=== PATIENT | female | born 1970 | race Caucasian/White ===

== ENCOUNTER 2017-04-25 11:40 | Inpatient (IN) | payer BC ==
[~2017-04-25] VITALS: Ht 165.1 cm; Wt 70.4 kg
--- NOTE | ~2017-04-25 | CON ---
[place], [place] REPORT OF CONSULTATION NAME: HERB DYSON [facility] #: [id number] UNIT #: [id number] ROOM: 409 DOCTOR: ROSARIO SAMUELS MD BIRTHDATE: [birth year] DOS: REASON FOR CONSULTATION: The patient was seen in the intensive care unit today for evaluation of an abnormal electrocardiogram. HISTORY OF PRESENT ILLNESS: The patient is a 46-year-old woman with no previously documented history of heart disease. She states that she was told that she had an irregular heartbeat a year or more ago. She was seen by a doctor in [place], who told her that her heart was fine. She does not believe that he did any extensive testing and specifically denies wearing a monitor or having an echocardiogram or stress test done. The patient does use cocaine on a daily basis as well as heroin. On the day of admission, 04/25/2017, she did have a line of cocaine and was injected with heroin. She then lost consciousness. She apparently did fall striking her head. It is not clear whether bystanders might have done a CPR, but she does have a bruise on her sternum. Her initial electrocardiogram did show ST elevations in multiple leads. A subsequent EKG has improved. The patient denies any pleuritic chest pain and does not have any elevation in troponin. We were asked to help determine the cause and significance of her EKG changes. Currently, the patient feels well. She does have a headache from an injury to her head that she apparently sustained while unconscious. There are reports that she fell. She denies any chest pain. She does have some dyspnea. She denies any nausea or vomiting. She denies any peripheral edema or history of DVT. PAST MEDICAL HISTORY: Includes: 1. Tobacco abuse. 2. Cocaine use. 3. Heroin use. 4. Marijuana use. 5. Occasional alcohol use. 6. No previous medical illnesses or surgeries. The patient states that she takes no prescribed medicines and has no known drug allergies. FAMILY HISTORY: Her father in his 60s from a stroke. Her mother in her 50s from pancreatic cancer. REVIEW OF SYSTEMS: The patient denies diplopia or loss of vision. She denies any focal weakness. She does have a headache. She denies nausea or vomiting. She denies fevers, chills or sweats. She states that she does have some dyspnea. She denies orthopnea or PND. She denies nausea or vomiting. She denies change in bowel or bladder habits. She denies blood in urine or stools. She denies any hot or swollen joints. The remainder of the review of systems is negative except as noted above. SOCIAL HISTORY: The patient does use multiple drugs as noted above. She smokes 1 pack a day and has done so since age 15. She does not consume much alcohol. [place], [place] REPORT OF CONSULTATION NAME: HERB DYSON UNIT #: [id number] ROOM: [facility] DOCTOR: ROSARIO SAMUELS MD BIRTHDATE: [birth year] PHYSICAL EXAMINATION: GENERAL: The patient is a well-nourished white female who is awake, alert and oriented. VITAL SIGNS: Pulse is 70 and regular, blood pressure is 103/76, the patient is afebrile. She weighs 70.4 kg and has a body mass index of 25.8. HEENT: Normocephalic, atraumatic. Extraocular muscles are intact. Sclerae are clear. Pupils are equal, round and react to light. The oral mucosa is moist. Tongue is midline. NECK: Supple. She has no jugular distention. The carotids are full. I heard no bruits. She had no neck or supraclavicular masses. Respirations are unlabored. She does have expiratory prolongation and scattered wheezes bilaterally. There were no rales. There was no presacral edema or chest wall tenderness. CARDIOVASCULAR: Her heart has a regular rhythm without murmurs, rubs or gallops. The PMI is not displaced. There is no precordial heave, lift or thrill. ABDOMEN: Soft and normoactive without masses, organomegaly or bruits. EXTREMITIES: Showed no edema. Peripheral pulses were easily palpated in the feet bilaterally. There were no palpable cords or Homans sign. Chest x-ray showed no acute cardiopulmonary problems. LABORATORY DATA: Show normal troponin levels. Hemoglobin is 12.2, white count 13,800, platelet count 141,000. Urine screen is positive for opiates, cocaine, metabolites and cannabinoids. Sodium is 142, potassium 3.9, BUN 6, creatinine 0.82. I did review her electrocardiograms and they do show ST elevations in multiple leads, which are mild. The repeat EKG had improved. IMPRESSION: 1. Abnormal electrocardiogram which has improved. The patient's examination does not indicate a rub. She does not have a paradoxic pulse and her chest x-ray does not show significant cardiomegaly. I think it is very unlikely that she has pericarditis. Her EKG changes may be due to early repolarization or possibly due to vasospasm from cocaine. 2. History of multiple drug abuse. 3. History of long-term and ongoing cigarette abuse. PLAN: We will proceed with an echocardiogram. If that looks normal, then no other cardiac workup is planned at this time. We thank the hospitalist service for asking our advice regarding her care. [place], [place] REPORT OF CONSULTATION NAME: KARISHERB Gary UNIT #: [id number] ROOM: [facility] DOCTOR: ROSARIO SAMUELS MD BIRTHDATE: [birth year] ROSARIO SAMUELS MD CM:CONSTR:REPORT OF CONSULTATION 1117 04/26/17 [id number] interface
--- NOTE | ~2017-04-25 | PR ---
[place], [place] PROGRESS NOTE NAME: HERB DYSON [facility] #: [id number] UNIT #: [id number] ROOM: 409 DOCTOR: ROSARIO SAMUELS MD BIRTHDATE: [birth year] DOS: 04/27/2017 CARDIOLOGY PROGRESS NOTE SUBJECTIVE: The patient was seen at her bedside today for followup of her abnormal electrocardiogram. She is feeling better. Her chest is sore, but she denies pleuritic chest pain. She has not had fevers or chills. She is drowsy, but thinks it is from the Subutex. PHYSICAL EXAMINATION: VITAL SIGNS: Today, her pulse is 64 and regular, blood pressure is 147/88, she is afebrile. She weighs 70.4 kg with a body mass index of 25.8. HEENT: Normocephalic, atraumatic. Extraocular muscles are intact. Sclerae are clear. Pupils are equal, round and reactive to light. The oral mucosa is moist. Tongue is midline. NECK: Supple. She has no jugular distention. Carotids are full. LUNGS: Respirations are unlabored. HEART: Has a regular rhythm without murmurs, rubs or gallops. PMI is not displaced. There is no precordial heave, lift or thrill. ABDOMEN: Soft and normally active. EXTREMITIES: Showed no edema. IMAGING: I reviewed her echocardiogram yesterday. It shows a normal pericardium without any evidence for pericarditis, left ventricular size, wall thickness, regional wall motion and systolic function are all normal. She did not have any valve abnormalities. She does have an atrial septal aneurysm. Saline contrast injection did show that there is evidence for a patent foramen ovale with right to left shunting. The atrial dimensions were normal and there was no evidence for right ventricular overload to suggest that this was a hemodynamically significant finding. IMPRESSIONS: 1. Abnormal electrocardiogram, which has improved. The patient's examination and echocardiogram did not show any evidence for pericarditis or hemodynamically significant pericardial effusion. EKG changes may be due to early repolarization or possibly due to vasospasm from cocaine abuse. 2. History of multiple drug abuse. 3. Long-term and ongoing cigarette abuse. 4. Atrial septal aneurysm with presence of a patent foramen ovale and right to left shunting. PLAN: The atrial septal aneurysm and patent foramen ovale are incidental findings. Utmost, I would treat her with antiplatelet therapy, but unless she has a stroke or transient ischemic attack, no other management strategies are appropriate. The most significant effect of an atrial septal aneurysm is, it can be associated with a PFO, but it does not worsen the patient's overall prognosis, cause chest pain, etc. [place], [place] PROGRESS NOTE NAME: HERB DYSON UNIT #: [id number] ROOM: 409 DOCTOR: ABRIL HUGGINS,ROSARIO BIRTHDATE: [birth year] I think that we can remove the patient's heart monitor. We will follow her as needed during her hospitalization, but for now, we will sign off. I thank the hospitalist group for asking our advice regarding her care. ROSARIO SAMUELS MD CM:PNTRANS [id number] ROSARIO SAMUELS MD 04/28/17 0407 interface
[~2017-04-25 11:40] MED LIST: CIPRO250 MG PO; MOTRIN800 MG PO
[2017-04-25 11:54] VITALS: BP 128/88
[2017-04-25 12:31] LABS: BASO % 0.3 % (0.0-1.0); EOS # 0.1 10*3/uL (0.0-0.4); EOS % 0.9 % (1.0-4.0); HEMATOCRIT 39.2 % (37.0-47.0); HEMOGLOBIN 13.3 g/dl (12.0-16.0); IG # 0.1 10*3/uL (0.0-0.1); LYMPH % 16.8 % (27.0-41.0); MEAN CELL VOLUME 96.3 fl (81.0-99.0); MEAN CORPUSCULAR HGB 32.7 pg (27.0-31.0); MEAN CORPUSCULAR HGB CONC 33.9 g/dl (33.0-37.0); MEAN PLATELET VOLUME 11.7 fl (9.6-12.3); MONO # 0.4 10*3/uL (0.1-1.0); MONO % 3.8 % (3.0-9.0); NEUT # 9.1 10*3/uL (2.3-7.9); NEUT % 77.7 % (47.0-73.0); PLATELET COUNT AUTOMATED 153 10*3/uL (130-400); RED BLOOD COUNT 4.07 10*6/uL (4.10-5.10); RED CELL DISTRI WIDTH 12.5 % (0-14.5); WHITE BLOOD COUNT 11.7 10*3/uL (4.8-10.8)
[2017-04-25 12:40] LABS: INTERNATIONAL NORM RATIO 1.1 (2.0-3.5); PROTHROMBIN TIME 11.5 SECONDS (9.0-12.4)
[2017-04-25 12:49] LABS: ALBUMIN 3.3 gm/dl (3.1-4.5); ALKALINE PHOSPHATASE 55 U/L (45-117); BILIRUBIN, TOTAL 0.4 mg/dl (0.2-1.0); BUN 9 mg/dl (7-24); CARBON DIOXIDE 26 mmol/L (21-32); CHLORIDE 103 mmol/L (98-107); CPK 91 U/L (26-192); EST GLOM FILT AFRICAN AMERICAN > 60 ml/min; GLUCOSE 156 mg/dL (65-99); MAGNESIUM 1.8 mg/dL (1.5-2.1); POTASSIUM 3.4 mmol/L (3.5-5.1); SGOT/AST 15 IU/L (3-35); SGPT/ALT 15 U/L (12-78); SODIUM 138 mmol/L (136-145); TOTAL PROTEIN 6.1 gm/dL (6.4-8.2)
[2017-04-25 12:51] LABS: C-REACTIVE PROTEIN < 0.29 MG/DL (0-0.3); TROPONIN I < 0.015 ng/ml (<0.045)
[2017-04-25 13:04] VITALS: BP 98/50
[2017-04-25 14:15] LABS: BILIRUBIN NEGATIVE (NEGATIVE); BLOOD NEGATIVE (NEGATIVE); CLARITY CLOUDY (CLEAR); COLOR YELLOW (YELLOW); GLUCOSE TRACE (NEGATIVE); KETONE NEGATIVE (NEGATIVE); LEUKO ESTERASE NEGATIVE (NEGATIVE); NITRITE NEGATIVE (NEGATIVE); PH 5.5 (5.0-9.0); PROTEIN 1+ (NEGATIVE); SPECIFIC GRAVITY >= 1.030 (1.005-1.030)
[2017-04-25 14:28] LABS: LA>2 REFLEX 2 HR DRAW NOW
[2017-04-25 14:33] LABS: BACTERIA 1+; EPITHELIAL CELLS 16-20; URINE REFLEX COMMENT NO (NO)
[2017-04-25 14:39] LABS: URINE AMPHETAMINES < 1000 (1000ng/ml); URINE BARBITURATES < 200 (200ng/ml); URINE COCAINE > 300 (300ng/ml)
[2017-04-25 15:41] VITALS: BP 108/48
[2017-04-25 17:16] VITALS: BP 150/94
[2017-04-25 18:07] VITALS: BP 98/55
[2017-04-25 20:00] VITALS: BP 96/58
[2017-04-26] VITALS: BP 103/76
[2017-04-26 00:56] LABS: CKMB 2.8 ng/ml (0.5-3.6)
[2017-04-26 00:57] LABS: CPK 131 U/L (26-192); TROPONIN I < 0.015 ng/ml (<0.045)
[2017-04-26 01:24] LABS: BILIRUBIN NEGATIVE (NEGATIVE); BLOOD NEGATIVE (NEGATIVE); COLOR YELLOW (YELLOW); GLUCOSE NEGATIVE (NEGATIVE); KETONE NEGATIVE (NEGATIVE); LEUKO ESTERASE 1+ (NEGATIVE); NITRITE NEGATIVE (NEGATIVE); PROTEIN NEGATIVE (NEGATIVE); SPECIFIC GRAVITY 1.015 (1.005-1.030); UROBILINOGEN 0.2 E.U./dl (0.2-1.0)
[2017-04-26 01:33] LABS: CLARITY SL CLOUDY (CLEAR); EPITHELIAL CELLS 40-45
[2017-04-26 01:34] LABS: BACTERIA TRACE; URINE REFLEX COMMENT YES (NO)
[2017-04-26 04:00] VITALS: BP 103/76
[2017-04-26 06:21] LABS: BASO % 0.3 % (0.0-1.0); EOS # 0.1 10*3/uL (0.0-0.4); EOS % 0.6 % (1.0-4.0); HEMATOCRIT 37.4 % (37.0-47.0); HEMOGLOBIN 12.2 g/dl (12.0-16.0); IG # 0.1 10*3/uL (0.0-0.1); LYMPH # 2.9 10*3/uL (1.3-4.4); LYMPH % 20.8 % (27.0-41.0); MEAN CELL VOLUME 97.1 fl (81.0-99.0); MEAN CORPUSCULAR HGB 31.7 pg (27.0-31.0); MEAN CORPUSCULAR HGB CONC 32.6 g/dl (33.0-37.0); MEAN PLATELET VOLUME 12.8 fl (9.6-12.3); MONO # 0.8 10*3/uL (0.1-1.0); MONO % 5.5 % (3.0-9.0); NEUT % 72.4 % (47.0-73.0); PLATELET COUNT AUTOMATED 141 10*3/uL (130-400); RED BLOOD COUNT 3.85 10*6/uL (4.10-5.10); RED CELL DISTRI WIDTH 12.8 % (0-14.5); WHITE BLOOD COUNT 13.8 10*3/uL (4.8-10.8)
[2017-04-26 06:35] LABS: BUN 6 mg/dl (7-24); CARBON DIOXIDE 24 mmol/L (21-32); CHLORIDE 109 mmol/L (98-107); CHOLESTEROL 107 mg/dL (<200); EST GLOM FILT AFRICAN AMERICAN > 60 ml/min; FREE T4 1.14 ng/dl (0.76-1.46); GLUCOSE 81 mg/dL (65-99); HDL CHOLESTEROL 66 mg/dl (40-60); LDL CHOLESTEROL 30 mg/dL (9-159); PHOSPHOROUS 2.5 mg/dL (2.5-4.9); POTASSIUM 3.9 mmol/L (3.5-5.1); SODIUM 142 mmol/L (136-145); TRIGLYCERIDES 57 mg/dl (<150); VLDL CHOLESTEROL 11 mg/dL (6-40)
[2017-04-26 06:36] LABS: CPK 117 U/L (26-192)
[2017-04-26 06:37] LABS: CKMB 2.4 ng/ml (0.5-3.6)
[2017-04-26 06:38] LABS: TROPONIN I < 0.015 ng/ml (<0.045)
[2017-04-26 06:42] LABS: THYROID STIM HORMONE (HS) 0.285 uIU/ml (0.358-4.75)
[2017-04-26 06:55] LABS: HEMOGLOBIN A1c 5.6 % (4.8-5.6)
[2017-04-26 08:15] VITALS: BP 98/60
[2017-04-26 12:00] VITALS: BP 89/54
[2017-04-26 12:23] LABS: CKMB 1.4 ng/ml (0.5-3.6); CPK 91 U/L (26-192)
[2017-04-26 12:25] LABS: TROPONIN I < 0.015 ng/ml (<0.045)
[2017-04-26 15:57] VITALS: BP 118/77
[2017-04-26 20:00] VITALS: BP 125/74
[2017-04-27] VITALS: BP 125/83
[2017-04-27 06:00] LABS: BASO # 0.1 10*3/uL (0.0-0.1); BASO % 0.6 % (0.0-1.0); EOS # 0.1 10*3/uL (0.0-0.4); EOS % 0.7 % (1.0-4.0); HEMATOCRIT 38.2 % (37.0-47.0); HEMOGLOBIN 12.5 g/dl (12.0-16.0); LYMPH # 1.8 10*3/uL (1.3-4.4); MEAN CELL VOLUME 97.4 fl (81.0-99.0); MEAN CORPUSCULAR HGB 31.9 pg (27.0-31.0); MEAN CORPUSCULAR HGB CONC 32.7 g/dl (33.0-37.0); MEAN PLATELET VOLUME 12.5 fl (9.6-12.3); MONO # 0.7 10*3/uL (0.1-1.0); MONO % 6.7 % (3.0-9.0); NEUT % 74.6 % (47.0-73.0); PLATELET COUNT AUTOMATED 134 10*3/uL (130-400); RED BLOOD COUNT 3.92 10*6/uL (4.10-5.10); RED CELL DISTRI WIDTH 12.8 % (0-14.5); WHITE BLOOD COUNT 10.7 10*3/uL (4.8-10.8)
[2017-04-27 06:03] LABS: ALBUMIN 2.9 gm/dl (3.1-4.5); ALKALINE PHOSPHATASE 52 U/L (45-117); BILIRUBIN, TOTAL 0.8 mg/dl (0.2-1.0); BUN 5 mg/dl (7-24); CARBON DIOXIDE 30 mmol/L (21-32); CHLORIDE 105 mmol/L (98-107); EST GLOM FILT AFRICAN AMERICAN > 60 ml/min; GLUCOSE 98 mg/dL (65-99); POTASSIUM 3.8 mmol/L (3.5-5.1); SGOT/AST 7 IU/L (3-35); SGPT/ALT 12 U/L (12-78); SODIUM 142 mmol/L (136-145); TOTAL PROTEIN 5.9 gm/dL (6.4-8.2)
[2017-04-27 07:56] VITALS: BP 117/72
[2017-04-27 11:50] VITALS: BP 147/88
[2017-04-27 15:59] VITALS: BP 124/80
[2017-04-27 20:00] VITALS: BP 102/79
[2017-04-28] VITALS: BP 110/64
[2017-04-28 08:00] VITALS: BP 108/56
[2017-04-28 12:00] VITALS: BP 128/75
[2017-04-28 16:00] VITALS: BP 113/71
[2017-04-28 20:00] VITALS: BP 118/68
[2017-04-29] VITALS: BP 121/74
[2017-04-29 06:03] LABS: BASO % 0.1 % (0.0-1.0); EOS % 0.2 % (1.0-4.0); HEMATOCRIT 38.7 % (37.0-47.0); LYMPH # 1.6 10*3/uL (1.3-4.4); LYMPH % 13.1 % (27.0-41.0); MEAN CELL VOLUME 94.9 fl (81.0-99.0); MEAN CORPUSCULAR HGB 31.9 pg (27.0-31.0); MEAN CORPUSCULAR HGB CONC 33.6 g/dl (33.0-37.0); MEAN PLATELET VOLUME 12.7 fl (9.6-12.3); MONO # 0.9 10*3/uL (0.1-1.0); MONO % 7.9 % (3.0-9.0); NEUT # 9.3 10*3/uL (2.3-7.9); NEUT % 78.4 % (47.0-73.0); PLATELET COUNT AUTOMATED 174 10*3/uL (130-400); RED BLOOD COUNT 4.08 10*6/uL (4.10-5.10); RED CELL DISTRI WIDTH 12.5 % (0-14.5); WHITE BLOOD COUNT 11.8 10*3/uL (4.8-10.8)
[2017-04-29 08:00] VITALS: BP 100/56
[2017-04-29] MEDS ORDERED: ATARAX,VISTARIL50 MG PO (11:11)
[2017-04-29] MEDS ORDERED: ROPINIROLE HYD0.5 MG PO (11:11)
[2017-04-29] MEDS ORDERED: PREDNISONE10 MG PO (11:11)
[2017-04-29] MEDS ORDERED: ONDANSETRON H2 MG/ML IV (11:11)
[2017-04-29] MEDS ORDERED: VIBRAMYCIN100 MG PO (11:11)
[2017-04-29] MEDS ORDERED: ASPIRIN CHEWABL81 MG PO (11:13)
== END 2017-04-29 14:19 | disposition home or self-care (01) | DRG 917 ==
LOC: ED → 4E 16:55 → EDHOLD 16:55 → ICCU 16:55 → 4E 04-26 15:52
PROVIDERS: Emergency Medicine; Internal Medicine; Student in an Organized Health Care Education/Training Program
DX: T40.1X1A Poisoning by heroin, accidental (unintentional), initial encounter (principal); J96.01 Acute respiratory failure with hypoxia; N17.0 Acute kidney failure with tubular necrosis; G93.41 Metabolic encephalopathy; E44.0 Moderate protein-calorie malnutrition; F11.23 Opioid dependence with withdrawal; Q21.1 Atrial septal defect; F14.10 Cocaine abuse, uncomplicated; S09.90XA Unspecified injury of head, initial encounter; E87.6 Hypokalemia; E55.9 Vitamin D deficiency, unspecified; J20.9 Acute bronchitis, unspecified; W18.30XA Fall on same level, unspecified, initial encounter; Z72.89 Other problems related to lifestyle; Z82.3 Family history of stroke; Z72.0 Tobacco use; Z80.8 Family history of malignant neoplasm of other organs or systems; Y92.89 Other specified places as the place of occurrence of the external cause; Z68.25 Body mass index [BMI] 25.0-25.9, adult; Z82.49 Family history of ischemic heart disease and other diseases of the circulatory system; Z83.3 Family history of diabetes mellitus; Y93.89 Activity, other specified; Y99.8 Other external cause status

== ENCOUNTER 2018-04-24 21:43 | Emergency (ER) | payer OTHER ==
[~2018-04-24] VITALS: Ht 162.5 cm; Wt 68.0 kg
[~2018-04-24 21:43] MED LIST changes: +ASPIRIN CHEWABL81 MG PO; +ATARAX,VISTARIL50 MG PO; +ONDANSETRON H2 MG/ML IV; +PREDNISONE10 MG PO; +ROPINIROLE HYD0.5 MG PO; +VIBRAMYCIN100 MG PO
[2018-04-24 22:15] LABS: BILIRUBIN NEGATIVE (NEGATIVE); BLOOD 2+ (NEGATIVE); CLARITY CLEAR (CLEAR); COLOR YELLOW (YELLOW); GLUCOSE NEGATIVE (NEGATIVE); KETONE NEGATIVE (NEGATIVE); LEUKO ESTERASE 3+ (NEGATIVE); NITRITE POSITIVE (NEGATIVE); UROBILINOGEN 0.2 E.U./dl (0.2-1.0)
[2018-04-24 22:27] LABS: BACTERIA 3+; WBC 21-30 wbc/hpf (0-5)
[2018-04-24 22:30] LABS: URINE AMPHETAMINES < 1000 (1000ng/ml); URINE BARBITURATES < 200 (200ng/ml); URINE BENZODIAZEPINES < 200 (200ng/ml); URINE CANNABINOIDS (THC) > 50 (50ng/ml); URINE COCAINE > 300 (300ng/ml); URINE METHADONE < 300 (300ng/ml); URINE OPIATES < 300 (300ng/ml); URINE PHENCYCLIDINE < 25 (25ng/ml)
[2018-04-24 23:03] LABS: BASO # 0.1 10*3/uL (0.0-0.1); BASO % 0.5 % (0.0-1.0); EOS % 0.3 % (1.0-4.0); HEMATOCRIT 41.5 % (37.0-47.0); LYMPH % 19.5 % (27.0-41.0); MEAN CELL VOLUME 95.4 fl (81.0-99.0); MEAN CORPUSCULAR HGB 32.2 pg (27.0-31.0); MEAN CORPUSCULAR HGB CONC 33.7 g/dl (33.0-37.0); MEAN PLATELET VOLUME 11.3 fl (9.6-12.3); MONO # 1.1 10*3/uL (0.1-1.0); MONO % 10.7 % (3.0-9.0); NEUT # 7.1 10*3/uL (2.3-7.9); NEUT % 68.7 % (47.0-73.0); PLATELET COUNT AUTOMATED 194 10*3/uL (130-400); RED BLOOD COUNT 4.35 10*6/uL (4.10-5.10); RED CELL DISTRI WIDTH 12.5 % (0-14.5); WHITE BLOOD COUNT 10.3 10*3/uL (4.8-10.8)
[2018-04-24 23:17] LABS: ALBUMIN 3.5 gm/dl (3.1-4.5); ALKALINE PHOSPHATASE 76 U/L (45-117); BUN 8 mg/dl (7-24); CHLORIDE 103 mmol/L (98-107); CREATININE 0.99 mg/dL (0.55-1.02); POTASSIUM 3.7 mmol/L (3.5-5.1); SGOT/AST 16 IU/L (3-35); SGPT/ALT 14 U/L (12-78); SODIUM 140 mmol/L (136-145); TOTAL PROTEIN 7.8 gm/dL (6.4-8.2)
[2018-04-25] MEDS ORDERED: SEPTDS PO (00:41)
[2018-04-25] MEDS ORDERED: VICODIN 5-3001 EACH PO (00:41)
== END 2018-04-25 01:03 | disposition home or self-care (01) ==
LOC: ED 21:43
PROVIDERS: Emergency Medicine
DX: N20.0 Calculus of kidney (principal); N39.0 Urinary tract infection, site not specified; R31.9 Hematuria, unspecified; F17.200 Nicotine dependence, unspecified, uncomplicated; M54.5 Low back pain; F11.10 Opioid abuse, uncomplicated; F14.10 Cocaine abuse, uncomplicated; F12.90 Cannabis use, unspecified, uncomplicated; Z79.82 Long term (current) use of aspirin; Z79.899 Other long term (current) drug therapy

== ENCOUNTER 2019-06-05 10:34 | Emergency (ER) | payer OTHER ==
[~2019-06-05] VITALS: Ht 162.5 cm; Wt 72.6 kg
[~2019-06-05 10:34] MED LIST changes: +SEPTDS PO; +VICODIN 5-3001 EACH PO
[2019-06-05] MEDS ORDERED: Motrin,Rufen800 MG PO (10:51)
[2019-06-05] MEDS ORDERED: CLINDAMYCIN HC300 MG PO (10:51)
== END 2019-06-05 11:00 | disposition home or self-care (01) ==
LOC: ED 10:34
DX: K04.7 Periapical abscess without sinus (principal); F17.200 Nicotine dependence, unspecified, uncomplicated; Z79.2 Long term (current) use of antibiotics; Z79.82 Long term (current) use of aspirin

== ENCOUNTER 2019-09-20 19:43 | Emergency (ER) | payer OTHER ==
[~2019-09-20] VITALS: Ht 162.5 cm; Wt 72.6 kg
[~2019-09-20 19:43] MED LIST changes: +CLINDAMYCIN HC300 MG PO; +Motrin,Rufen800 MG PO
[2019-09-20] MEDS ORDERED: PREDNISONE20 M1 PO (20:51)
[2019-09-20] MEDS ORDERED: ROBAXIN-750750 MG PO (20:51)
== END 2019-09-20 21:18 ==
LOC: ED 19:43
DX: M54.42 Lumbago with sciatica, left side (principal); F17.200 Nicotine dependence, unspecified, uncomplicated

== ENCOUNTER → 2019-10-04 | Outpatient (CLI) | payer OTHER ==
[~2019-10-04] MED LIST changes: +PREDNISONE20 M1 PO; +ROBAXIN-750750 MG PO
== END | disposition home or self-care (01) ==
LOC: RAD 09:09
DX: M25.561 Pain in right knee (principal)

== ENCOUNTER → 2020-05-07 | Outpatient (CLI) | payer OTHER | END | disposition home or self-care (01) | LOC: COVID19 00:11 | DX: Z01.818 Encounter for other preprocedural examination (principal); Z11.59 Encounter for screening for other viral diseases ==

== ENCOUNTER 2020-08-24 12:17 | Emergency (ER) | payer OTHER ==
[~2020-08-24] VITALS: Ht 162.5 cm; Wt 70.3 kg
[2020-08-24] MEDS ORDERED: IBU800 MG PO (13:53)
== END 2020-08-24 14:01 | disposition home or self-care (01) ==
LOC: ED 12:17
DX: M25.561 Pain in right knee (principal); F17.200 Nicotine dependence, unspecified, uncomplicated; Z79.899 Other long term (current) drug therapy

== ENCOUNTER → 2020-09-08 | Outpatient (CLI) | payer OTHER ==
[~2020-09-08] MED LIST changes: +IBU800 MG PO
[2020-09-08 13:12] LABS: BASO # 0.1 10*3/uL (0.0-0.1); BASO % 1.1 % (0.0-1.0); EOS # 0.1 10*3/uL (0.0-0.4); EOS % 1.8 % (1.0-4.0); HEMATOCRIT 43.1 % (37.0-47.0); LYMPH # 3.3 10*3/uL (1.3-4.4); LYMPH % 54.5 % (27.0-41.0); MEAN CELL VOLUME 91.7 fl (81.0-99.0); MEAN CORPUSCULAR HGB 30.4 pg (27.0-31.0); MEAN CORPUSCULAR HGB CONC 33.2 g/dl (33.0-37.0); MEAN PLATELET VOLUME 11.7 fl (9.6-12.3); MONO # 0.5 10*3/uL (0.1-1.0); MONO % 7.8 % (3.0-9.0); NEUT # 2.1 10*3/uL (2.3-7.9); NEUT % 34.8 % (47.0-73.0); PLATELET COUNT AUTOMATED 232 10*3/uL (130-400); RED CELL DISTRI WIDTH 13.8 % (0-14.5); WHITE BLOOD COUNT 6.1 10*3/uL (4.8-10.8)
[2020-09-08 13:36] LABS: ALBUMIN 4.1 gm/dl (3.1-4.5); BUN 18 mg/dl (7-24); CHLORIDE 106 mmol/L (98-107); HDL CHOLESTEROL 72 mg/dl (40-60); POTASSIUM 3.9 mmol/L (3.5-5.1); SODIUM 142 mmol/L (136-145)
[2020-09-08 13:44] LABS: ALKALINE PHOSPHATASE 80 U/L (45-117); BILIRUBIN, DIRECT 0.1 mg/dL (0.0-0.2); CHOLESTEROL 203 mg/dL (<200); LDL CHOLESTEROL 111 mg/dL (9-159); SGOT/AST 15 IU/L (3-35); SGPT/ALT 17 U/L (12-78); T3 UPTAKE 36 % (31-39); THYROXINE (T4) TOTAL 7.4 ug/dl (4.8-13.9); TOTAL PROTEIN 7.8 gm/dL (6.4-8.2); TRIGLYCERIDES 101 mg/dl (<150); VLDL CHOLESTEROL 20 mg/dL (6-40)
[2020-09-08 14:02] LABS: VITAMIN D, 25-HYDROXY 25.6 ng/mL (30-100)
== END | disposition home or self-care (01) ==
LOC: LAB 12:09
DX: Z51.81 Encounter for therapeutic drug level monitoring (principal); Z79.899 Other long term (current) drug therapy

== ENCOUNTER 2021-06-23 07:37 | Emergency (ER) | payer OTHER ==
[2021-06-23] MEDS ORDERED: CYCLOBENZAPRINE10 MG PO (09:58)
[2021-06-23] MEDS ORDERED: NAPROXEN500 M1 PO (09:58)
== END 2021-06-23 10:01 | disposition home or self-care (01) ==
LOC: ED 07:37
DX: S46.911A Strain of unspecified muscle, fascia and tendon at shoulder and upper arm level, right arm, initial encounter (principal); M54.2 Cervicalgia; F17.200 Nicotine dependence, unspecified, uncomplicated; Z79.899 Other long term (current) drug therapy; X58.XXXA Exposure to other specified factors, initial encounter; Y93.89 Activity, other specified; Y92.89 Other specified places as the place of occurrence of the external cause; Y99.8 Other external cause status

== ENCOUNTER → 2021-09-29 | Outpatient (CLI) | payer OTHER ==
[~2021-09-29] MED LIST changes: +CYCLOBENZAPRINE10 MG PO; +NAPROXEN500 M1 PO
[2021-09-29 14:10] LABS: BASO # 0.1 10*3/uL (0.0-0.1); BASO % 0.8 % (0.0-1.0); EOS # 0.1 10*3/uL (0.0-0.4); EOS % 1.8 % (1.0-4.0); HEMATOCRIT 43.5 % (37.0-47.0); LYMPH # 3.5 10*3/uL (1.3-4.4); LYMPH % 53.6 % (27.0-41.0); MONO # 0.3 10*3/uL (0.1-1.0); MONO % 5.2 % (3.0-9.0); NEUT # 2.5 10*3/uL (2.3-7.9); NEUT % 38.4 % (47.0-73.0); PLATELET COUNT AUTOMATED 193 10*3/uL (130-400); RED BLOOD COUNT 4.63 10*6/uL (4.10-5.10); RED CELL DISTRI WIDTH 13.9 % (0-14.5); WHITE BLOOD COUNT 6.6 10*3/uL (4.8-10.8)
[2021-09-29 14:43] LABS: CHLORIDE 107 mmol/L (98-107); POTASSIUM 3.9 mmol/L (3.5-5.1); SODIUM 141 mmol/L (136-145)
[2021-09-29 14:50] LABS: VITAMIN D, 25-HYDROXY 35.6 ng/mL (30-100)
[2021-09-29 14:57] LABS: ALBUMIN 3.8 gm/dl (3.1-4.5); ALKALINE PHOSPHATASE 78 U/L (45-117); BUN 16 mg/dl (7-24); CHOLESTEROL 180 mg/dL (<200); LDL CHOLESTEROL 97 mg/dL (9-159); SGOT/AST 10 IU/L (3-35); SGPT/ALT 18 U/L (12-78); THYROID STIM HORMONE (HS) 0.968 uIU/ml (0.358-4.75); TOTAL PROTEIN 7.4 gm/dL (6.4-8.2); TRIGLYCERIDES 98 mg/dl (<150)
== END | disposition home or self-care (01) ==
LOC: LAB 13:50
PROVIDERS: ATTEND Nurse Practitioner Family
DX: Z51.81 Encounter for therapeutic drug level monitoring (principal); F41.1 Generalized anxiety disorder; R53.83 Other fatigue; E55.9 Vitamin D deficiency, unspecified; Z79.899 Other long term (current) drug therapy

== ENCOUNTER → 2021-10-20 | Outpatient (CLI) | payer OTHER | END | disposition home or self-care (01) | LOC: MAMMO 16:00 | PROVIDERS: ATTEND Internal Medicine Nephrology | DX: Z12.31 Encounter for screening mammogram for malignant neoplasm of breast (principal); N64.89 Other specified disorders of breast ==

== ENCOUNTER → 2022-04-26 | Outpatient (CLI) | payer OTHER | END | disposition home or self-care (01) | LOC: US 10:30 | PROVIDERS: ATTEND Internal Medicine Nephrology | DX: G89.29 Other chronic pain (principal) ==

== ENCOUNTER → 2023-03-25 | Outpatient (CLI) | payer MEDICAID | END | disposition home or self-care (01) | LOC: US 00:47 | PROVIDERS: ATTEND Internal Medicine Nephrology | DX: M17.11 Unilateral primary osteoarthritis, right knee (principal); M25.761 Osteophyte, right knee; M25.862 Other specified joint disorders, left knee ==

== ENCOUNTER 2023-05-31 02:53 | Emergency (ER) | payer MEDICAID ==
[~2023-05-31] VITALS: Ht 162.5 cm; Wt 70.3 kg
[2023-05-31 03:16] LABS: BILIRUBIN 1+ (Negative); BLOOD Trace-Intact (Negative); CLARITY Turbid (Clear); COLOR Dark Yellow (Yellow); GLUCOSE Negative (Negative); KETONE Trace (Negative); LEUKO ESTERASE 2+ (Negative); NITRITE Negative (Negative); SPECIFIC GRAVITY >= 1.030 (1.001-1.030)
[2023-05-31 03:25] LABS: BACTERIA 1+; MUCOUS 1+; RBC 21-30 rbc/hpf (0-2); WBC 41-50 wbc/hpf (0-5)
[2023-05-31 04:42] LABS: HEMATOCRIT 43.9 % (37.0-47.0); MEAN CELL VOLUME 93.2 fl (81.0-99.0); MEAN CORPUSCULAR HGB 31.2 pg (27.0-31.0); MEAN CORPUSCULAR HGB CONC 33.5 g/dl (33.0-37.0); MEAN PLATELET VOLUME 11.7 fl (9.6-12.3); PLATELET COUNT AUTOMATED 206 10*3/uL (130-400); RED BLOOD COUNT 4.71 10*6/uL (4.10-5.10); RED CELL DISTRI WIDTH 13.6 % (0-14.5); WHITE BLOOD COUNT 7.8 10*3/uL (4.8-10.8)
[2023-05-31 04:44] LABS: MANUAL DIFF REFLEX YES
[2023-05-31 04:56] LABS: BASOPHILS 1 % (0-1); TOTAL CELLS COUNTED 100 #CELLS
[2023-05-31 04:57] LABS: PLATELET SUFFICIENCY NORMAL (NORMAL)
[2023-05-31 05:05] LABS: POTASSIUM 3.8 mmol/L (3.4-5.1); TOTAL PROTEIN 7.4 gm/dL (6.0-8.0)
[2023-05-31] MEDS ORDERED: OMNICEF300 MG PO (05:19)
== END 2023-05-31 05:30 | disposition home or self-care (01) ==
LOC: ED 02:53
PROVIDERS: Emergency Medicine
DX: N39.0 Urinary tract infection, site not specified (principal); F14.90 Cocaine use, unspecified, uncomplicated; F17.200 Nicotine dependence, unspecified, uncomplicated; F12.90 Cannabis use, unspecified, uncomplicated; F19.90 Other psychoactive substance use, unspecified, uncomplicated

== ENCOUNTER 2023-10-22 09:51 | Emergency (ER) | payer MEDICAID ==
[~2023-10-22] VITALS: Ht 160 cm; Wt 56.7 kg
[~2023-10-22 09:51] MED LIST changes: +OMNICEF300 MG PO
[2023-10-22] MEDS ORDERED: NEURONTIN300 MG PO (10:04)
[2023-10-22] MEDS ORDERED: EFFEXOR XR75 M1 PO (10:04)
[2023-10-22] MEDS ORDERED: 'CLONIDINE0.1 MG PO (10:04)
[2023-10-22] MEDS ORDERED: HYDROXYZINE PAM25 M1 PO (10:05)
[2023-10-22] MEDS ORDERED: CYCLOBENZAPRINE10 MG PO (10:05)
[2023-10-22] MEDS ORDERED: MELOXICAM15 MG PO (10:19)
[2023-10-22] MEDS ORDERED: CYCLOBENZAPRINE5 M3 PO (10:19)
== END 2023-10-22 10:55 | disposition home or self-care (01) ==
LOC: ED 09:51
DX: M25.511 Pain in right shoulder (principal); M16.11 Unilateral primary osteoarthritis, right hip; F17.200 Nicotine dependence, unspecified, uncomplicated; Z79.899 Other long term (current) drug therapy; Z87.442 Personal history of urinary calculi

== ENCOUNTER 2024-03-11 04:56 | Emergency (ER) | payer MEDICAID ==
[~2024-03-11] VITALS: Ht 162.5 cm; Wt 53.1 kg
[~2024-03-11 04:56] MED LIST changes: +'CLONIDINE0.1 MG PO; +CYCLOBENZAPRINE5 M3 PO; +EFFEXOR XR75 M1 PO; +HYDROXYZINE PAM25 M1 PO; +MELOXICAM15 MG PO; +NEURONTIN300 MG PO
== END 2024-03-11 06:28 | disposition home or self-care (01) ==
LOC: ED 04:56
DX: S80.01XA Contusion of right knee, initial encounter (principal); F14.90 Cocaine use, unspecified, uncomplicated; F17.200 Nicotine dependence, unspecified, uncomplicated; F12.90 Cannabis use, unspecified, uncomplicated; W19.XXXA Unspecified fall, initial encounter; Y93.89 Activity, other specified; Y92.009 Unspecified place in unspecified non-institutional (private) residence as the place of occurrence of the external cause; Y99.8 Other external cause status

== ENCOUNTER → 2024-04-25 | Outpatient (CLI) | payer MEDICAID | END | disposition home or self-care (01) | LOC: MRI 10:00 → MAMMO 14:00 | PROVIDERS: ATTEND Internal Medicine Nephrology | DX: Z12.31 Encounter for screening mammogram for malignant neoplasm of breast (principal); M48.02 Spinal stenosis, cervical region; R92.30 Dense breasts, unspecified; M47.812 Spondylosis without myelopathy or radiculopathy, cervical region; M50.321 Other cervical disc degeneration at C4-C5 level; M85.88 Other specified disorders of bone density and structure, other site ==

== ENCOUNTER 2024-05-13 17:28 | Emergency (ER) | payer MEDICAID ==
[~2024-05-13] VITALS: Ht 162.5 cm; Wt 43.1 kg
[2024-05-13] MEDS ORDERED: Bacitracin Zinc 14 GM TUBE T ONE (17:45)
[2024-05-13] MEDS ORDERED: Acetaminophen/Hydrocodone 5 MG/325 MG TABLET PO ONE (17:45)
[2024-05-13] MEDS ORDERED: Amoxicillin/Clavulanate Pota 875 MG TAB PO ONE (17:45)
[2024-05-13] MEDS ORDERED: AMOX-CLAV 875-1 EACH PO (17:52)
== END 2024-05-13 18:29 | disposition home or self-care (01) ==
LOC: ED 17:28
DX: S61.233A Puncture wound without foreign body of left middle finger without damage to nail, initial encounter (principal); S81.831A Puncture wound without foreign body, right lower leg, initial encounter; M19.90 Unspecified osteoarthritis, unspecified site; E87.6 Hypokalemia; Z87.442 Personal history of urinary calculi; F11.10 Opioid abuse, uncomplicated; F17.200 Nicotine dependence, unspecified, uncomplicated; F12.90 Cannabis use, unspecified, uncomplicated; F14.90 Cocaine use, unspecified, uncomplicated; W54.0XXA Bitten by dog, initial encounter; Y93.01 Activity, walking, marching and hiking; Y92.89 Other specified places as the place of occurrence of the external cause; Y99.8 Other external cause status

== ENCOUNTER 2024-05-15 11:30 | Emergency (ER) | payer MEDICAID ==
[~2024-05-15] VITALS: Ht 162.5 cm; Wt 54.4 kg
[~2024-05-15 11:30] MED LIST changes: +AMOX-CLAV 875-1 EACH PO
[2024-05-15] MEDS ORDERED: SODIUM CHLORIDE 0.9% 1,000 ML IV ONE (12:15)
[2024-05-15] MEDS ORDERED: Piperacillin Sodium/Tazobact 50 ML IV ONE (12:20)
[2024-05-15 12:44] LABS: HEMATOCRIT 39.3 % (37.0-47.0); MEAN CELL VOLUME 94.9 fl (81.0-99.0); MEAN CORPUSCULAR HGB 32.4 pg (27.0-31.0); MEAN CORPUSCULAR HGB CONC 34.1 g/dl (33.0-37.0); MEAN PLATELET VOLUME 11.6 fl (9.6-12.3); PLATELET COUNT AUTOMATED 154 10*3/uL (130-400); RED BLOOD COUNT 4.14 10*6/uL (4.10-5.10); RED CELL DISTRI WIDTH 12.6 % (0-14.5); WHITE BLOOD COUNT 8.7 10*3/uL (4.8-10.8)
[2024-05-15 12:57] LABS: MANUAL DIFF REFLEX YES
[2024-05-15 13:00] LABS: BASOPHILS 1 % (0-1); BURR CELLS FEW; PLATELET SUFFICIENCY NORMAL (NORMAL); POLYCHROMASIA SLIGHT; ROULEAUX SLIGHT; TARGET CELLS FEW; TOTAL CELLS COUNTED 100 #CELLS; VACUOLATION OF NEUTROPHILS SLIGHT
[2024-05-15 13:02] LABS: BUN 12 mg/dl (9-23); CHLORIDE 108 mmol/L (98-107); POTASSIUM 3.8 mmol/L (3.4-5.1)
[2024-05-15] MEDS ORDERED: Acetaminophen/Oxycodone 5 MG/325 MG TABLET PO ONE (13:30)
[2024-05-15] MEDS ORDERED: PERCOCET 5-3251 EACH PO (13:35)
== END 2024-05-15 13:56 | disposition left against medical advice (07) ==
LOC: ED 11:30
PROVIDERS: Nurse Practitioner Family
DX: S81.831A Puncture wound without foreign body, right lower leg, initial encounter (principal); S61.253A Open bite of left middle finger without damage to nail, initial encounter; I10 Essential (primary) hypertension; F32.A Depression, unspecified; F17.200 Nicotine dependence, unspecified, uncomplicated; Z79.2 Long term (current) use of antibiotics; Z79.899 Other long term (current) drug therapy; W54.0XXA Bitten by dog, initial encounter; Y93.89 Activity, other specified; Y92.89 Other specified places as the place of occurrence of the external cause; Y99.8 Other external cause status

== ENCOUNTER → 2024-09-27 | Outpatient (CLI) | payer MEDICAID ==
[~2024-09-27] MED LIST changes: +PERCOCET 5-3251 EACH PO
== END | disposition home or self-care (01) ==
LOC: RAD 12:28
PROVIDERS: ATTEND Internal Medicine Nephrology
DX: M19.032 Primary osteoarthritis, left wrist (principal)